=== PATIENT | female | born 1975 | race Caucasian/White ===

== ENCOUNTER 2018-02-01 06:11 | Emergency (ER) | payer OTHER, MEDICAID ==
[~2018-02-01] VITALS: Ht 165.1 cm; Wt 85.7 kg
[~2018-02-01 06:11] MED LIST: CEPH-571 PO
[2018-02-01] MEDS ORDERED: normal saline 1000ml 1,000 ML IV ONE (06:45)
[2018-02-01] MEDS ORDERED: proCHLORperazine 10 MG/2 ml inj IV ONE (06:45)
[2018-02-01] MEDS ORDERED: ketorolac trometh. 30mg/ml inj. IV ONE (06:45)
[2018-02-01] MEDS ORDERED: acetaminophen 325mg tablet PO ONE (06:45)
[2018-02-01 08:46] VITALS: BP 108/71
== END 2018-02-01 08:48 | disposition home or self-care (01) ==
LOC: ER 06:11
DX: G89.29 Other chronic pain (principal); R51 Headache; Z88.5 Allergy status to narcotic agent; Z79.2 Long term (current) use of antibiotics; Z90.710 Acquired absence of both cervix and uterus
CPT/HCPCS: 96374; 96375; 99284; J0780; J1885; J7030

== ENCOUNTER 2019-09-22 18:19 | Emergency (ER) | payer MEDICAID, OTHER ==
[~2019-09-22] VITALS: Ht 162.6 cm; Wt 98.2 kg
[2019-09-22 19:09] LABS: BASOPHILS # (AUTO) 0.1 X10'3 (0-0.2); EOSINOPHILS # (AUTO) 0.3 X10'3 (0-0.9); EOSINOPHILS % (AUTO) 3.2 % (0-6); HEMATOCRIT 40.1 % (35.0-45.0); HEMOGLOBIN 13.5 g/dl (12.0-16.0); LYMPHOCYTES # (AUTO) 2.4 X10'3 (1.1-4.8); LYMPHOCYTES % (AUTO) 28.6 % (21-51); MEAN CORPUSCULAR HEMOGLOBIN 29.1 PG (27.0-31.0); MEAN CORPUSCULAR HGB CONC 33.7 g/dL (33.0-36.5); MEAN CORPUSCULAR VOLUME 86.4 FL (78-98); MEAN PLATELET VOLUME 7.6 FL (7.4-10.4); MONOCYTES # (AUTO) 0.6 X10'3 (0-0.9); NEUTROPHILS # (AUTO) 5.1 X10'3 (1.8-7.7); NEUTROPHILS % (AUTO) 60.2 % (42-75); PLATELET COUNT 311 X10'3 (140-440); RED BLOOD COUNT 4.64 X10'6 (4.20-5.60); RED CELL DISTRIBUTION WIDTH 13.5 % (11.5-14.5); WHITE BLOOD COUNT 8.4 X10'3 (4.5-11.0)
[2019-09-22 19:25] LABS: ALANINE AMINOTRANSFERASE 26 U/L (12-78); ALBUMIN 3.8 G/DL (3.4-5.0); ALBUMIN/GLOBULIN RATIO 0.9 (1.1-1.5); ALKALINE PHOSPHATASE 101 IU/L (46-116); AMYLASE 63 U/L (25-115); ANION GAP 11 (8-16); ASPARTATE AMINO TRANSFERASE 20 U/L (10-37); BILIRUBIN,TOTAL 0.2 MG/DL (0.1-1.0); BLOOD UREA NITROGEN 19 MG/DL (7-18); BUN/CREATININE RATIO 19.4 (6.6-38.0); CALCIUM 9.5 MG/DL (8.5-10.1); CHLORIDE 105 MMOL/L (99-107); CREATININE 0.98 MG/DL (0.40-0.90); GLUCOSE 99 MG/DL (70-104); LIPASE 174 U/L (73-393); POTASSIUM 3.5 MMOL/L (3.5-5.1); SODIUM 141 MMOL/L (135-145); TOTAL CARBON DIOXIDE 24.6 MMOL/L (24-32); TOTAL PROTEIN 7.9 G/DL (6.4-8.2); eGFR 62 ML/MIN
[2019-09-22 19:52] LABS: CLARITY,URINE CLEAR (Clear); COLOR,URINE YELLOW (Yellow); GLUCOSE, URINE NEGATIVE (Neg); KETONES,URINE NEGATIVE (Neg); LEUKOCYTE ESTERASE ,URINE NEGATIVE (Neg); NITRITES, URINE NEGATIVE (Neg); OCCULT BLOOD,URINE SMALL (Neg); PROTEIN,URINE NEGATIVE (Neg); UROBILINOGEN,URINE 0.2 E.U/dL (0.2-1.0)
[2019-09-22 19:58] LABS: BACTERIA,URINE NONE SEEN /HPF (Neg); RBC,URINE 0-2 /HPF (0-2); SQUAMOUS EPITHELIAL CELL,UR FEW /LPF (FEW); UA COLLECTION TYPE VOIDED; WBC,URINE NONE SEEN /HPF (0-4)
[2019-09-22] MEDS ORDERED: ONDA8TAB6 PO (20:08)
[2019-09-22] MEDS ORDERED: mag hydrox/Alum hydrox/simeth 30ml oral suspension PO ONE (20:10)
[2019-09-22] MEDS ORDERED: ondansetron 4mg rapidly disintigrating tab PO ONE (20:10)
[2019-09-22 20:19] VITALS: BP 127/99
== END 2019-09-22 20:20 | disposition home or self-care (01) ==
LOC: ER 18:20
DX: R10.13 Epigastric pain (principal); R11.0 Nausea; Z87.442 Personal history of urinary calculi; Z90.49 Acquired absence of other specified parts of digestive tract; Z90.710 Acquired absence of both cervix and uterus; Z98.890 Other specified postprocedural states; Z88.5 Allergy status to narcotic agent
CPT/HCPCS: 36415; 80053; 81001; 82150; 83690; 85025; 99283

== ENCOUNTER 2020-12-24 11:42 | Emergency (ER) | payer BC ==
[~2020-12-24] VITALS: Ht 165.1 cm; Wt 98.3 kg
[~2020-12-24 11:42] MED LIST changes: +ACET-1025 PO; +ASCO-139 PO; -CEPH-571 PO; +CHOL100062 PO; +MAGN400C PO; +TRAM50TA2 PO
[2020-12-24 12:12] VITALS: BP 113/18
[2020-12-24 13:24] LABS: CLARITY,URINE CLEAR (Clear); COLOR,URINE STRAW (Yellow); GLUCOSE, URINE NEGATIVE (Neg); KETONES,URINE NEGATIVE (Neg); LEUKOCYTE ESTERASE ,URINE NEGATIVE (Neg); NITRITES, URINE NEGATIVE (Neg); OCCULT BLOOD,URINE TRACE-INTACT (Neg); PROTEIN,URINE NEGATIVE (Neg); URINE HCG NEGATIVE (NEG); UROBILINOGEN,URINE 0.2 E.U/dL (0.2-1.0)
[2020-12-24 13:29] LABS: BASOPHILS % (AUTO) 0.2 % (0-1); EOSINOPHILS % (AUTO) 0.5 % (0-6); HEMATOCRIT 42.4 % (35.0-45.0); LYMPHOCYTES % (AUTO) 10.4 % (21-51); MEAN CORPUSCULAR HEMOGLOBIN 29.3 PG (27.0-31.0); MEAN CORPUSCULAR HGB CONC 33.1 g/dL (33.0-36.5); MEAN CORPUSCULAR VOLUME 88.5 FL (78-98); MONOCYTES # (AUTO) 0.6 X10'3 (0-0.9); MONOCYTES % (AUTO) 6.7 % (2-12); NEUTROPHILS # (AUTO) 7.8 X10'3 (1.8-7.7); NEUTROPHILS % (AUTO) 82.2 % (42-75); PLATELET COUNT 261 X10'3 (140-440); RED BLOOD COUNT 4.79 X10'6 (4.20-5.60); RED CELL DISTRIBUTION WIDTH 13.7 % (11.5-14.5); WHITE BLOOD COUNT 9.4 X10'3 (4.5-11.0)
[2020-12-24 13:33] LABS: PARTIAL THROMBOPLASTIN TIME 31 SECONDS (22-32)
[2020-12-24 13:33] LABS: UA COLLECTION TYPE NON-SPECIFIED
[2020-12-24 13:34] LABS: BACTERIA,URINE FEW /HPF (Neg); RBC,URINE 0-2 /HPF (0-2); SQUAMOUS EPITHELIAL CELL,UR FEW /LPF (FEW); WBC,URINE 0-4 /HPF (0-4)
[2020-12-24 13:36] LABS: ALANINE AMINOTRANSFERASE 28 U/L (12-78); ALBUMIN 3.7 G/DL (3.4-5.0); ALBUMIN/GLOBULIN RATIO 0.9 (1.1-1.5); ALKALINE PHOSPHATASE 103 IU/L (46-116); ANION GAP 10 (8-16); ASPARTATE AMINO TRANSFERASE 25 U/L (10-37); BILIRUBIN,TOTAL 0.4 MG/DL (0.1-1.0); BLOOD UREA NITROGEN 8 MG/DL (7-18); BUN/CREATININE RATIO 8.3 (6.6-38.0); CALCIUM 8.8 MG/DL (8.5-10.1); CHLORIDE 105 MMOL/L (99-107); CREATININE 0.96 MG/DL (0.40-0.90); GLUCOSE 90 MG/DL (70-104); POTASSIUM 3.6 MMOL/L (3.5-5.1); SODIUM 141 MMOL/L (135-145); eGFR 63 ML/MIN
[2020-12-24 13:37] LABS: LIPASE 99 U/L (73-393)
== END 2020-12-24 14:53 | disposition home or self-care (01) ==
LOC: ER 11:42
DX: K52.9 Noninfective gastroenteritis and colitis, unspecified (principal); Z87.442 Personal history of urinary calculi; Z90.49 Acquired absence of other specified parts of digestive tract; Z90.710 Acquired absence of both cervix and uterus; Z98.890 Other specified postprocedural states; Z88.5 Allergy status to narcotic agent; Z88.8 Allergy status to other drugs, medicaments and biological substances; Z79.899 Other long term (current) drug therapy
CPT/HCPCS: 36415; 80053; 81001; 81025; 83690; 85025; 85610; 85730; 99282; 99283

== ENCOUNTER 2021-06-02 11:19 | Outpatient (CLI) | payer BC ==
[2021-06-02 12:05] LABS: BASOPHILS # (AUTO) 0.1 X10'3 (0-0.2); BASOPHILS % (AUTO) 1.8 % (0-1); EOSINOPHILS # (AUTO) 0.1 X10'3 (0-0.9); EOSINOPHILS % (AUTO) 1.9 % (0-6); HEMATOCRIT 39.6 % (35.0-45.0); HEMOGLOBIN 13.4 g/dl (12.0-16.0); LYMPHOCYTES # (AUTO) 1.9 X10'3 (1.1-4.8); LYMPHOCYTES % (AUTO) 28.8 % (21-51); MEAN CORPUSCULAR HEMOGLOBIN 29.3 PG (27.0-31.0); MEAN CORPUSCULAR HGB CONC 33.9 g/dL (33.0-36.5); MEAN CORPUSCULAR VOLUME 86.5 FL (78-98); MEAN PLATELET VOLUME 7.7 FL (7.4-10.4); MONOCYTES # (AUTO) 0.4 X10'3 (0-0.9); MONOCYTES % (AUTO) 6.3 % (2-12); NEUTROPHILS # (AUTO) 4.1 X10'3 (1.8-7.7); NEUTROPHILS % (AUTO) 61.2 % (42-75); PLATELET COUNT 323 X10'3 (140-440); RED BLOOD COUNT 4.58 X10'6 (4.20-5.60); RED CELL DISTRIBUTION WIDTH 13.5 % (11.5-14.5); WHITE BLOOD COUNT 6.8 X10'3 (4.5-11.0)
[2021-06-02 12:27] LABS: CLARITY,URINE CLEAR (Clear); COLOR,URINE STRAW (Yellow); PH,URINE 6.5 (4.8-8.0); UA COLLECTION TYPE CLN CATCH MIDSTREAM
[2021-06-02 12:28] LABS: GLUCOSE, URINE NEGATIVE (Neg); KETONES,URINE NEGATIVE (Neg); LEUKOCYTE ESTERASE ,URINE NEGATIVE (Neg); NITRITES, URINE NEGATIVE (Neg); OCCULT BLOOD,URINE NEGATIVE (Neg); PROTEIN,URINE NEGATIVE (Neg); UROBILINOGEN,URINE 0.2 E.U/dL (0.2-1.0)
[2021-06-02 12:34] LABS: RHEUM FACTOR QUAL REFLEX TITER NEGATIVE (Neg)
[2021-06-02 12:57] LABS: ALANINE AMINOTRANSFERASE 30 U/L (12-78); ALBUMIN 3.9 G/DL (3.4-5.0); ALBUMIN/GLOBULIN RATIO 1.1 (1.1-1.5); ALKALINE PHOSPHATASE 103 IU/L (46-116); ANION GAP 9 (8-16); ASPARTATE AMINO TRANSFERASE 19 U/L (10-37); BILIRUBIN,TOTAL 0.2 MG/DL (0.1-1.0); BLOOD UREA NITROGEN 16 MG/DL (7-18); CALCIUM 8.6 MG/DL (8.5-10.1); CHLORIDE 107 MMOL/L (99-107); CHOL/HDL RATIO 4.7 (0.00-4.99); CHOLESTEROL 183 MG/DL (0-200); CREATININE 0.94 MG/DL (0.40-0.90); GLUCOSE 84 MG/DL (70-104); HDL CHOLESTEROL 39 MG/DL (35-60); LDL CHOLESTEROL 116 MG/DL (50-100); POTASSIUM 4.5 MMOL/L (3.5-5.1); SODIUM 143 MMOL/L (135-145); TOTAL CARBON DIOXIDE 26.8 MMOL/L (24-32); TOTAL PROTEIN 7.6 G/DL (6.4-8.2); TRIGLYCERIDES 100 MG/DL (20-135); eGFR 65 ML/MIN
== END 2021-06-02 23:59 | disposition home or self-care (01) ==
LOC: LAB 11:19
PROVIDERS: ATTEND Family Medicine
DX: Z00.01 Encounter for general adult medical examination with abnormal findings (principal); F41.9 Anxiety disorder, unspecified; E89.40 Asymptomatic postprocedural ovarian failure
CPT/HCPCS: 36415; 80053; 80061; 81003; 84439; 84443; 85025; 85651; 86038; 86430

== ENCOUNTER 2021-09-16 10:05 | Outpatient (CLI) | payer BC | END 2021-09-16 23:59 | disposition home or self-care (01) | LOC: RAD 10:05 | PROVIDERS: ATTEND Family Medicine | DX: M19.071 Primary osteoarthritis, right ankle and foot (principal); M77.31 Calcaneal spur, right foot; M20.11 Hallux valgus (acquired), right foot | CPT/HCPCS: 73610; 73630 ==

== ENCOUNTER 2021-11-12 08:33 | Outpatient (CLI) | payer BC | END 2021-11-12 23:59 | disposition home or self-care (01) | LOC: RAD 08:33 | PROVIDERS: ATTEND Podiatrist Foot & Ankle Surgery | DX: M72.2 Plantar fascial fibromatosis (principal) | CPT/HCPCS: 73718 ==

== ENCOUNTER 2022-12-13 09:55 | Outpatient (CLI) | payer BC ==
[2022-12-13 10:20] LABS: BASOPHILS % (AUTO) 0.5 % (0-1); EOSINOPHILS # (AUTO) 0.2 X10'3 (0-0.9); HEMATOCRIT 42.3 % (35.0-45.0); HEMOGLOBIN 14.1 g/dl (12.0-16.0); LYMPHOCYTES # (AUTO) 1.6 X10'3 (1.1-4.8); LYMPHOCYTES % (AUTO) 23.3 % (21-51); MEAN CORPUSCULAR HEMOGLOBIN 28.9 PG (27.0-31.0); MEAN CORPUSCULAR HGB CONC 33.3 g/dL (33.0-36.5); MEAN CORPUSCULAR VOLUME 86.8 FL (78-98); MEAN PLATELET VOLUME 7.3 FL (7.4-10.4); MONOCYTES # (AUTO) 0.5 X10'3 (0-0.9); MONOCYTES % (AUTO) 7.8 % (2-12); NEUTROPHILS # (AUTO) 4.6 X10'3 (1.8-7.7); NEUTROPHILS % (AUTO) 65.4 % (42-75); PLATELET COUNT 340 X10'3 (140-440); RED BLOOD COUNT 4.88 X10'6 (4.20-5.60); RED CELL DISTRIBUTION WIDTH 13.5 % (11.5-14.5); WHITE BLOOD COUNT 7.1 X10'3 (4.5-11.0)
[2022-12-13 10:49] LABS: ALANINE AMINOTRANSFERASE 29 U/L (12-78); ALBUMIN 3.7 G/DL (3.4-5.0); ALBUMIN/GLOBULIN RATIO 0.9 (1.1-1.5); ALKALINE PHOSPHATASE 116 IU/L (46-116); ANION GAP 13 (8-16); ASPARTATE AMINO TRANSFERASE 19 U/L (10-37); BILIRUBIN,TOTAL 0.2 MG/DL (0.1-1.0); BLOOD UREA NITROGEN 20 MG/DL (7-18); CALCIUM 9.4 MG/DL (8.5-10.1); CHLORIDE 104 MMOL/L (99-107); CHOL/HDL RATIO 5.5 (0.00-4.99); CHOLESTEROL 202 MG/DL (0-200); GLUCOSE 112 MG/DL (70-104); HDL CHOLESTEROL 37 MG/DL (35-60); LDL CHOLESTEROL 117 MG/DL (50-100); POTASSIUM 4.2 MMOL/L (3.5-5.1); SODIUM 140 MMOL/L (135-145); TOTAL CARBON DIOXIDE 23.4 MMOL/L (24-32); TOTAL PROTEIN 7.9 G/DL (6.4-8.2); TRIGLYCERIDES 252 MG/DL (20-135); eGFR 60 ML/MIN
== END 2022-12-13 23:59 | disposition home or self-care (01) ==
LOC: LAB 09:55
PROVIDERS: ATTEND Physician Assistant
DX: Z00.01 Encounter for general adult medical examination with abnormal findings (principal); R63.5 Abnormal weight gain; G57.93 Unspecified mononeuropathy of bilateral lower limbs
CPT/HCPCS: 36415; 80053; 80061; 84144; 84443; 85025

== ENCOUNTER 2024-05-07 07:14 | Emergency (ER) | payer BC ==
[~2024-05-07] VITALS: Ht 165.1 cm; Wt 108.0 kg
[2024-05-07 07:18] VITALS: BP 127/80; PULSE 102; RESP 16; TEMP 98.1; O2SAT 96
[2024-05-07] MEDS: erythromycin ophthalmic ointment 1gm tube LEFTEYE ONE (07:42)
== END 2024-05-07 07:47 | disposition home or self-care (01) ==
LOC: ER 07:15
DX: H00.014 Hordeolum externum left upper eyelid (principal); Z88.5 Allergy status to narcotic agent; Z79.899 Other long term (current) drug therapy; Z98.890 Other specified postprocedural states; Z90.710 Acquired absence of both cervix and uterus
CPT/HCPCS: 99283

== ENCOUNTER 2024-06-24 10:56 | Emergency (ER) | payer BC ==
[~2024-06-24] VITALS: Ht 162.6 cm; Wt 108.3 kg
[2024-06-24 11:03] VITALS: BP 129/78; PULSE 86; RESP 16; TEMP 97.6; O2SAT 95
[2024-06-24] MEDS: erythromycin ophthalmic ointment 1gm tube RIGHTEYE ONE (11:29)
== END 2024-06-24 11:34 | disposition home or self-care (01) ==
LOC: ER 10:56
DX: H00.11 Chalazion right upper eyelid (principal); Z88.5 Allergy status to narcotic agent; Z90.49 Acquired absence of other specified parts of digestive tract; Z90.710 Acquired absence of both cervix and uterus; Z79.899 Other long term (current) drug therapy; Z87.442 Personal history of urinary calculi
CPT/HCPCS: 99282

== ENCOUNTER 2024-08-14 06:27 | Outpatient (CLI) | payer BC | END 2024-08-14 23:59 | disposition home or self-care (01) | LOC: RAD 06:27 | PROVIDERS: ATTEND Nurse Practitioner Family | DX: M25.562 Pain in left knee (principal) | CPT/HCPCS: 73564 ==

== ENCOUNTER 2024-09-07 09:12 | Emergency (ER) | payer BC ==
[~2024-09-07] VITALS: Ht 165.1 cm; Wt 108.7 kg
[2024-09-07] MEDS ORDERED: CEPH-585 PO (09:46)
[2024-09-07 10:19] VITALS: BP 123/77; PULSE 91; RESP 16; TEMP 98.6; O2SAT 98
== END 2024-09-07 10:20 | disposition home or self-care (01) ==
LOC: ER 09:13
DX: H00.034 Abscess of left upper eyelid (principal); Z88.0 Allergy status to penicillin; Z88.5 Allergy status to narcotic agent; Z79.899 Other long term (current) drug therapy; Z90.710 Acquired absence of both cervix and uterus; Z90.49 Acquired absence of other specified parts of digestive tract; Z87.442 Personal history of urinary calculi; Z98.890 Other specified postprocedural states
CPT/HCPCS: 99283

== ENCOUNTER 2024-12-06 13:53 | Outpatient (CLI) | payer BC ==
--- NOTE | 2024-12-06 17:28 | RADIOLOGY REPORT ---
Procedure: MR MRI LOWER EXTREMITY LEFT 12/06/2024 03:05 PM INDICATION: PAIN IN LEFT KNEE COMPARISON: MRI LOWER EXTREMITY RIGHT on DOS: 11/12/21 TECHNIQUE: MRI was performed utilizing multiple appropriate imaging planes and pulse sequences. FINDINGS: Medial meniscus: Unremarkable. Lateral meniscus: Unremarkable. Anterior cruciate ligament: Unremarkable. Posterior cruciate ligament: Unremarkable. Medial collateral ligament: Unremarkable. Lateral stabilizers: Unremarkable. Extensor mechanism: Unremarkable. Pes anserine Tendons: Unremarkable. Medial compartment: Mild thinning and irregularity of the articular cartilage in the weight-bearing p art of the femoral condyle. Moderate marginal osteophytosis. Lateral compartment: Mild thinning and irregularity of the articular cartilage over the femoral condy le noted. Mild marginal osteophytosis. Patellofemoral compartment: Mild lateral patellar translation. Narrowing of lateral patellofemoral c ompartment thinning and irregularity of the articular cartilage subchondral marrow edema and cyst for mation. Bones: No suspicious lesion. Joint Effusion: None. Popliteal fossa: No Avila's cyst. Other: Mild subcutaneous edema anterior to patellar tendon and tibial tuberosity. Mild edema in Iesha a's fat pad along the ligamentum mucosal. IMPRESSION: 1. 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 2. Small suprapatellar joint effusion. 3. Findings suggestive of sprain of ligamentum mucosum. 4. The menisci, cruciate and collateral ligaments are intact. 5. Mild subcutaneous edema anterior to patellar tendon and tibial tuberosity.
== END 2024-12-06 23:59 | disposition home or self-care (01) ==
LOC: MRI02 13:53
PROVIDERS: ATTEND Nurse Practitioner Family
DX: M17.12 Unilateral primary osteoarthritis, left knee (principal); M25.562 Pain in left knee; R29.898 Other symptoms and signs involving the musculoskeletal system; M25.462 Effusion, left knee; R60.0 Localized edema
CPT/HCPCS: 73721